=== PATIENT | male | born 1955 | race Two or more races ===

== ENCOUNTER → 2020-11-12 | Outpatient (CLI) | payer MEDICARE ==
[~2020-11-12] MED LIST: AMLO2.5T5 PO; ATOR10TA PO; COLC0.6T37 PO; FLUO10CA15 PO; LOSA100T14 PO
[2020-11-12 08:54] LABS: BASOPHILS % (AUTO) 1 % (0-1); EOSINOPHILS % (AUTO) 1 % (1-7); LYMPHOCYTES % (AUTO) 24 % (22-44); MEAN CORPUSCULAR HEMOGLOBIN 32.8 pg (27.5-34.5); MEAN CORPUSCULAR HGB CONC 34.1 g/dL (33.2-36.2); MEAN PLATELET VOLUME 9.7 fL (7.4-10.4); MONOCYTES % (AUTO) 11 % (2-9); NEUTROPHILS % (AUTO) 63 % (42-75); PLATELET COUNT 192 x10^3/uL (130-400); RED BLOOD COUNT 4.44 x10^6/uL (4.38-5.82); RED CELL DISTRIBUTION WIDTH 12.2 % (9.4-14.8)
[2020-11-12 09:04] LABS: ANION GAP 6 mmol/L (5-15); CALCIUM 9.4 mg/dL (8.5-10.1); CHLORIDE 107 mmol/L (98-107)
[2020-11-12 09:09] LABS: ALANINE AMINOTRANSFERASE 39 U/L (12-78); ALKALINE PHOSPHATASE 82 U/L (45-117); BILIRUBIN,TOTAL 0.4 mg/dL (0.2-1.0); CREATININE 0.95 mg/dL (0.7-1.3)
[2020-11-12 09:27] LABS: MD NO
== END | disposition home or self-care (01) ==
LOC: STAR 07:32
PROVIDERS: ATTEND Urology
DX: Z01.818 Encounter for other preprocedural examination (principal); C61 Malignant neoplasm of prostate; Z20.822 Contact with and (suspected) exposure to COVID-19
CPT/HCPCS: 36415; 80053; 85025; 87635; 93005

== ENCOUNTER 2020-11-18 05:43 | Day surgery (SDC) | payer MEDICARE, OTHER ==
[~2020-11-18] VITALS: Ht 175.3 cm; Wt 77.0 kg
[2020-11-18] MEDS ORDERED: CHLORHEXIDINE 15 ML UDC MM STA ×2 (06:04→06:50)
[2020-11-18] MEDS ORDERED: LACTATED RINGERS 1,000 ML IV SCH (06:30)
[2020-11-18] MEDS ORDERED: BUPIVACAINE/PF 0.25% ONE (07:05)
[2020-11-18] MEDS ORDERED: OPIUM/BELLADONNA SUPP.RECT 16.2-60 MG ONE (07:05)
[2020-11-18] MEDS ORDERED: EPINEPHRINE 1 MG/ML, 1ML ONE (07:06)
[2020-11-18] MEDS ORDERED: LABETALOL 5MG/ML, 20ML IV PRN (07:30)
[2020-11-18] MEDS ORDERED: hydrALAzine 20 MG/ML, 1ML IV PRN (07:30)
[2020-11-18] MEDS ORDERED: PROMETHAZINE 25 MG/ML, 1ML IVPush PRN (07:30)
[2020-11-18] MEDS ORDERED: HALOPERIDOL 5 MG/ML IV PRN (07:30)
[2020-11-18] MEDS ORDERED: DIPHENHYDRAMINE 50 MG/ML, 1ML IVPush PRN (07:30)
[2020-11-18] MEDS ORDERED: HYDROmorphone 1 MG/ML, 1ML INJ IVPush PRN (07:30)
[2020-11-18] MEDS ORDERED: OXYcodone 5 MG/5 ML ORAL.SOL UDC PO PRN (07:30)
[2020-11-18] MEDS ORDERED: HYDROcodone/APAP 7.5-325MG/15ML UDC PO PRN (07:30)
[2020-11-18] MEDS ORDERED: MEPERIDINE/PF 25MG/0.5ML IVPush PRN (07:30)
[2020-11-18] MEDS ORDERED: CEFAZOLIN 1,000 MG ONE (07:31)
[2020-11-18] MEDS ORDERED: ONDANSETRON 2MG/ML, 2ML ONE (07:31)
[2020-11-18] MEDS ORDERED: GLYCOPYRROLATE 0.2MG/1ML, 5ML ONE (07:31)
[2020-11-18] MEDS ORDERED: ROCURONIUM 10 MG/ML,10ML ONE (07:31)
[2020-11-18] MEDS ORDERED: SUCCINYLCHOLINE 20 MG/ML, 10ML ONE (07:31)
[2020-11-18] MEDS ORDERED: ESMOLOL 100 MG/10 ML ONE ×2 (07:31→11:18)
[2020-11-18] MEDS ORDERED: NEOSTIGMINE 1 MG/ML, 10ML ONE (07:31)
[2020-11-18] MEDS ORDERED: DEXAMETHASONE 4 MG/ML, 1ML ONE (07:31)
[2020-11-18] MEDS ORDERED: PROPOFOL 10 MG/ML, 20ML ONE (07:31)
[2020-11-18] MEDS ORDERED: OXYcodone 5 MG/5 ML ORAL.SOL UDC ONE (11:35)
[2020-11-18] MEDS ORDERED: HYDROmorphone 1 MG/ML, 1ML INJ ONE (11:35)
[2020-11-18] MEDS ORDERED: FENTANYL PF 100 MCG/2ML ONE (11:35)
[2020-11-18] MEDS: FENTANYL PF 100 MCG/2ML IV PRN ×2 (11:37→11:43)
[2020-11-18 13:20] VITALS: BP 141/81
[2020-11-18] MEDS ORDERED: morphine SULFATE 10 MG/ML, 1ML IV PRN (13:30)
[2020-11-18] MEDS ORDERED: OPIUM/BELLADONNA SUPP.RECT 16.2-60 MG PR PRN (13:30)
[2020-11-18] MEDS ORDERED: D5%-0.45NACL+KCL 20MEQ 1,000 ML IV SCH ×3 (13:30→14:00)
[2020-11-18] MEDS ORDERED: ONDANSETRON 2MG/ML, 2ML IV PRN (13:30)
[2020-11-18] MEDS ORDERED: TEMAZEPAM 15 MG CAPSULE PO PRN (13:30)
[2020-11-18] MEDS: D5%-0.45NACL+KCL 20MEQ 1,000 ML IV SCH ×2 (14:00→22:56)
[2020-11-18] MEDS: ACETAMINOPHEN 500 MG TABLET PO SCH ×2 (14:43→22:56)
[2020-11-18] MEDS: OXYcodone IR 5MG TABLET PO PRN ×2 (15:41→20:55)
[2020-11-18 18:46] VITALS: BP 134/85
[2020-11-18] MEDS ORDERED: FLUOXETINE 10 MG CAP PO SCH (21:00)
[2020-11-19] MEDS: OXYcodone IR 5MG TABLET PO PRN ×3 (01:13→09:30)
[2020-11-19 02:02] VITALS: BP 127/80
[2020-11-19] MEDS: D5%-0.45NACL+KCL 20MEQ 1,000 ML IV SCH (05:36)
[2020-11-19 05:38] LABS: ANION GAP 4 mmol/L (5-15); CALCIUM 8.7 mg/dL (8.5-10.1); CHLORIDE 110 mmol/L (98-107)
[2020-11-19] MEDS: ACETAMINOPHEN 500 MG TABLET PO SCH ×2 (05:38→11:03)
[2020-11-19 05:41] LABS: CREATININE 0.76 mg/dL (0.7-1.3)
[2020-11-19 06:20] VITALS: BP 141/83
[2020-11-19] MEDS ORDERED: ENOXAPARIN 40 MG/0.4 ML SQ SCH (08:00)
[2020-11-19] MEDS ORDERED: AMLODIPINE 2.5 MG TABLET PO SCH (09:00)
[2020-11-19] MEDS ORDERED: DOCUSATE 100 MG CAPSULE PO SCH (09:00)
[2020-11-19] MEDS ORDERED: LOSARTAN 100 MG TAB PO SCH (09:00)
== END 2020-11-19 12:50 | disposition home or self-care (01) ==
LOC: OUT 05:43 → 4NE 12:56 → UNDOADMIN 23:23 → OUT 23:23 → 4NE 23:23 → DCLOUNGE 11-19 12:30 → 4NE 11-19 12:30 → OUT 11-19 12:50 → UNDODISIN 11-19 12:50
PROVIDERS: ATTEND Urology
DX: C61 Malignant neoplasm of prostate (principal); I10 Essential (primary) hypertension; M10.9 Gout, unspecified; E78.5 Hyperlipidemia, unspecified; F12.90 Cannabis use, unspecified, uncomplicated; Z79.899 Other long term (current) drug therapy; Z72.89 Other problems related to lifestyle; Z98.890 Other specified postprocedural states; Z82.49 Family history of ischemic heart disease and other diseases of the circulatory system
CPT/HCPCS: 36415; 55866; 80048; 85014; 85018; 86850; 86900; 88309; C1729; C1760; J0171; J0330; J0690; J1100; J1170; J1650; J2405; J2704; J2710; J3010; J3480; J7120; G0378

== ENCOUNTER 2020-11-25 08:32 | Outpatient (CLI) | payer MEDICARE, OTHER | END 2020-11-25 23:59 | disposition home or self-care (01) | LOC: RAD 08:32 | PROVIDERS: ATTEND Urology | DX: C61 Malignant neoplasm of prostate (principal); N99.89 Other postprocedural complications and disorders of genitourinary system; Y83.8 Other surgical procedures as the cause of abnormal reaction of the patient, or of later complication, without mention of misadventure at the time of the procedure | CPT/HCPCS: 51600; 74430; Q9958 ==

== ENCOUNTER 2020-12-02 07:25 | Outpatient (CLI) | payer MEDICARE ==
[2020-12-02] MEDS ORDERED: CYSTO CONRAY II 250 ML VIAL UR ONE (08:15)
== END 2020-12-02 23:59 | disposition home or self-care (01) ==
LOC: RAD 07:25
PROVIDERS: ATTEND Urology
DX: C61 Malignant neoplasm of prostate (principal)
CPT/HCPCS: 51600; 74430; Q9958